=== PATIENT | male | born 1955 | race Caucasian/White ===

== ENCOUNTER → 2016-09-25 | Outpatient (CLI) | payer OTHER | LOC: RAD 11:22 | DX: M54.5 Low back pain (principal); M47.816 Spondylosis without myelopathy or radiculopathy, lumbar region | CPT/HCPCS: 72110 ==

== ENCOUNTER → 2020-08-09 | Outpatient (CLI) | payer MEDICARE, OTHER ==
[~2020-08-09] MED LIST: LODINE CAP 300300 MG PO
== END ==
LOC: KOH-I 14:58
DX: Z12.2 Encounter for screening for malignant neoplasm of respiratory organs (principal); F17.210 Nicotine dependence, cigarettes, uncomplicated; R91.8 Other nonspecific abnormal finding of lung field
CPT/HCPCS: 71271

== ENCOUNTER → 2020-08-16 | Outpatient (CLI) | payer MEDICARE, OTHER | LOC: HEART 5 11:56 | DX: J44.9 Chronic obstructive pulmonary disease, unspecified (principal) | CPT/HCPCS: 94060; 94729 ==

== ENCOUNTER → 2021-01-09 | Outpatient (CLI) | payer MEDICARE, OTHER ==
[~2021-01-09] MED LIST changes: +ABILIFY5 MG PO; +ADVAIR 250-501 EACH INH; +AMLODIPINE BESY10 MG PO; +ASPIRIN EC81 MG PO; +DIVALPROEX SOD250 MG PO; +DONEPEZIL HCL5 MG PO; +DRIZALMA SPRINK40 MG PO; +ETODOLAC300 MG PO; +FAMOTIDINE40 MG PO; +GLIPIZIDE5 MG PO; +HYDROCHLOROTH12.5 MG PO; +ISOSORBIDE MON120 MG PO; +JANUVIA100 MG PO; +JARDIANCE25 MG PO; +LORATADINE10 MG PO; +LOSARTAN POTASS50 MG PO; +METFORMIN HCL500 MG PO; +METOPROLOL TART50 MG PO; +OMEGA-31000 MG PO; +OXYBUTYNIN CHLOR5 MG PO; +PLAVIX75 MG PO; +PRAVASTATIN SOD40 MG PO; +ROPINIROLE HCL0.5 MG PO; +VICTOZA 1818 MG/3 ML SC
== END ==
LOC: KOH-I 13:14
DX: R91.1 Solitary pulmonary nodule (principal)
CPT/HCPCS: 71250

== ENCOUNTER 2021-02-17 16:23 | Observation (INO) | payer MEDICARE, OTHER ==
[~2021-02-17] VITALS: Ht 175.3 cm; Wt 95.3 kg
[~2021-02-17 16:23] MED LIST changes: -ABILIFY5 MG PO; -ADVAIR 250-501 EACH INH; -AMLODIPINE BESY10 MG PO; -ASPIRIN EC81 MG PO; -DIVALPROEX SOD250 MG PO; -DONEPEZIL HCL5 MG PO; -DRIZALMA SPRINK40 MG PO; -ETODOLAC300 MG PO; -FAMOTIDINE40 MG PO; -GLIPIZIDE5 MG PO; -HYDROCHLOROTH12.5 MG PO; -ISOSORBIDE MON120 MG PO; -JANUVIA100 MG PO; -JARDIANCE25 MG PO; -LORATADINE10 MG PO; -LOSARTAN POTASS50 MG PO; -METFORMIN HCL500 MG PO; -METOPROLOL TART50 MG PO; -OMEGA-31000 MG PO; -OXYBUTYNIN CHLOR5 MG PO; -PLAVIX75 MG PO; -PRAVASTATIN SOD40 MG PO; -ROPINIROLE HCL0.5 MG PO; -VICTOZA 1818 MG/3 ML SC
[2021-02-17 17:46] LABS: HEMOGLOBIN 16.5 gm/dl (14.0-17.5); RED BLOOD COUNT 5.03 M/UL (4.20-5.50); WHITE BLOOD COUNT 8.9 K/UL (4.5-11.0)
[2021-02-17 18:09] LABS: BUN/CREATININE RATIO 17 (0-10)
[2021-02-18 11:08] LABS: HEMOGLOBIN 17.6 gm/dl (14.0-17.5); RED BLOOD COUNT 5.32 M/UL (4.20-5.50); WHITE BLOOD COUNT 8.2 K/UL (4.5-11.0)
[2021-02-18 11:45] LABS: BUN/CREATININE RATIO 20 (0-10)
[2021-02-18] MEDS ORDERED: ABILIFY5 MG PO (13:37)
[2021-02-18] MEDS ORDERED: LOSARTAN POTASS50 MG PO (13:38)
[2021-02-18] MEDS ORDERED: ADVAIR 250-501 EACH INH (13:38)
[2021-02-18] MEDS ORDERED: DIVALPROEX SOD250 MG PO ×2 (13:39)
[2021-02-18] MEDS ORDERED: GLIPIZIDE5 MG PO (13:39)
[2021-02-18] MEDS ORDERED: JANUVIA100 MG PO (13:40)
[2021-02-18] MEDS ORDERED: METOPROLOL TART50 MG PO (13:40)
[2021-02-18] MEDS ORDERED: LORATADINE10 MG PO (13:40)
[2021-02-18] MEDS ORDERED: PLAVIX75 MG PO (13:41)
[2021-02-18] MEDS ORDERED: HYDROCHLOROTH12.5 MG PO (13:41)
[2021-02-18] MEDS ORDERED: OXYBUTYNIN CHLOR5 MG PO (13:42)
[2021-02-18] MEDS ORDERED: PRAVASTATIN SOD40 MG PO (13:42)
[2021-02-18] MEDS ORDERED: DRIZALMA SPRINK40 MG PO (13:43)
[2021-02-18] MEDS ORDERED: ISOSORBIDE MON120 MG PO (13:43)
[2021-02-18] MEDS ORDERED: VICTOZA 1818 MG/3 ML SC (13:44)
[2021-02-18] MEDS ORDERED: ETODOLAC300 MG PO (13:44)
[2021-02-18] MEDS ORDERED: JARDIANCE25 MG PO (13:44)
[2021-02-18] MEDS ORDERED: METFORMIN HCL500 MG PO (13:45)
[2021-02-18] MEDS ORDERED: OMEGA-31000 MG PO (13:46)
[2021-02-18] MEDS ORDERED: DONEPEZIL HCL5 MG PO (13:47)
[2021-02-18] MEDS ORDERED: FAMOTIDINE40 MG PO (13:47)
[2021-02-18] MEDS ORDERED: AMLODIPINE BESY10 MG PO (13:47)
[2021-02-18] MEDS ORDERED: ROPINIROLE HCL0.5 MG PO (13:48)
[2021-02-18] MEDS ORDERED: ASPIRIN EC81 MG PO (13:48)
[2021-02-19 10:44] LABS: HEMOGLOBIN 17.6 gm/dl (14.0-17.5); RED BLOOD COUNT 5.41 M/UL (4.20-5.50); WHITE BLOOD COUNT 8.5 K/UL (4.5-11.0)
[2021-02-19 11:15] LABS: BUN/CREATININE RATIO 23 (0-10)
== END 2021-02-19 16:44 | disposition home or self-care (01) ==
LOC: ER1 16:23 → CDU 21:53 → 3 EAST 02-18 12:48 → MED SURG 4 02-18 17:15
PROVIDERS: Internal Medicine; Student in an Organized Health Care Education/Training Program; ADMIT Internal Medicine
DX: R07.89 Other chest pain (principal); I10 Essential (primary) hypertension; I25.10 Atherosclerotic heart disease of native coronary artery without angina pectoris; I49.5 Sick sinus syndrome; E11.9 Type 2 diabetes mellitus without complications; J44.9 Chronic obstructive pulmonary disease, unspecified; F17.210 Nicotine dependence, cigarettes, uncomplicated; E78.5 Hyperlipidemia, unspecified; K75.81 Nonalcoholic steatohepatitis (NASH); R74.01 Elevation of levels of liver transaminase levels; Z20.822 Contact with and (suspected) exposure to COVID-19; Z90.49 Acquired absence of other specified parts of digestive tract; Z85.828 Personal history of other malignant neoplasm of skin; Z98.890 Other specified postprocedural states; Z95.0 Presence of cardiac pacemaker; Z95.5 Presence of coronary angioplasty implant and graft; Z79.4 Long term (current) use of insulin; Z79.02 Long term (current) use of antithrombotics/antiplatelets; Z79.82 Long term (current) use of aspirin; Z79.899 Other long term (current) drug therapy
CPT/HCPCS: ECHO; 71045; 78452; 80053; 82550; 82553; 82962; 83735; 83874; 83880; 84100; 84484; 85025; 93005; 93017; 93306; 96372; 99285; A9502; G0378; J1650; J2785; U0002

== ENCOUNTER → 2021-04-30 | Day surgery (SDC) | payer MEDICARE, OTHER ==
[~2021-04-30] MED LIST changes: +ABILIFY5 MG PO; +ADVAIR 250-501 EACH INH; +ALBUTEROL2.5 MG/3 M INH; +AMLODIPINE BESY10 MG PO; +ASPIRIN EC81 MG PO; +DIVALPROEX SOD250 MG PO; +DONEPEZIL HCL5 MG PO; +DRIZALMA SPRINK40 MG PO; +ETODOLAC300 MG PO; +FAMOTIDINE40 MG PO; +GLIPIZIDE5 MG PO; +HYDROCHLOROTH12.5 MG PO; +ISOSORBIDE MON120 MG PO; +JANUVIA100 MG PO; +JARDIANCE25 MG PO; +LORATADINE10 MG PO; +LOSARTAN POTASS50 MG PO; +METFORMIN HCL500 MG PO; +METOPROLOL TART50 MG PO; +OMEGA-31000 MG PO; +OXYBUTYNIN CHLOR5 MG PO; +PLAVIX75 MG PO; +PRAVASTATIN SOD40 MG PO; +PROVENTIL HFA6.7 GM INH; +RANEXA500 MG PO; +ROPINIROLE HCL0.5 MG PO; +VICTOZA 1818 MG/3 ML SC; +VICTOZA 3-0.6 MG/0.1 SQ; +XOPENEX HFA15 GM INH
== END | disposition home or self-care (01) ==
LOC: OR 06:32
DX: Z12.11 Encounter for screening for malignant neoplasm of colon (principal); K57.30 Diverticulosis of large intestine without perforation or abscess without bleeding; K64.1 Second degree hemorrhoids; K29.50 Unspecified chronic gastritis without bleeding; K21.00 Gastro-esophageal reflux disease with esophagitis, without bleeding; I10 Essential (primary) hypertension; J44.9 Chronic obstructive pulmonary disease, unspecified; E11.9 Type 2 diabetes mellitus without complications; E66.3 Overweight; Z68.29 Body mass index [BMI] 29.0-29.9, adult; Z88.6 Allergy status to analgesic agent; Z79.82 Long term (current) use of aspirin; Z79.02 Long term (current) use of antithrombotics/antiplatelets; Z79.84 Long term (current) use of oral hypoglycemic drugs; Z79.899 Other long term (current) drug therapy; Z20.822 Contact with and (suspected) exposure to COVID-19
CPT/HCPCS: 43239; G0121; 82962; J2704; J7040

== ENCOUNTER → 2021-09-17 | Outpatient (CLI) | payer MEDICARE, OTHER | LOC: RAD 09:12 | DX: J44.9 Chronic obstructive pulmonary disease, unspecified (principal); Z72.0 Tobacco use | CPT/HCPCS: 71046 ==

== ENCOUNTER → 2022-01-12 | Outpatient (CLI) | payer MEDICARE, OTHER | LOC: KOH-I 12-25 13:00 | DX: F17.210 Nicotine dependence, cigarettes, uncomplicated (principal); R91.1 Solitary pulmonary nodule | CPT/HCPCS: 71271 ==